=== PATIENT | female | born 1980 | race African-American/Black ===

== ENCOUNTER 2017-03-18 09:03 | Emergency (ER) | payer MEDICAID ==
[~2017-03-18] VITALS: Ht 175.3 cm; Wt 79.4 kg
[2017-03-18 09:35] VITALS: BP 156/102
[2017-03-18 09:53] LABS: Basophils # (auto) 0 uL; Basophils % (auto) 0.2 % (0.0-2.0); Eosinophils # (auto) 0.3 uL; Eosinophils % (auto) 3.4 % (0.0-7.0); Hemoglobin 15.1 g/dL (12.2-16.2); Lymphocytes # (auto) 1.9 uL; Lymphocytes % (auto) 23.9 % (10.0-50.0); Mean Corpuscular Hemoglobin 31.8 pg (28.0-32.0); Mean Corpuscular Hgb Conc. 33.6 g/dL (32.0-36.0); Mean Corpuscular Volume 94.4 fL (80.0-100.0); Mean Platelet Volume 10.4 fL (6.9-10.8); Monocytes % (auto) 12.2 % (0.0-12.0); Neutrophils # (auto) 4.7 uL; Neutrophils % (auto) 60.3 % (37.0-80.0); Nucleated Red Blood Cells % 0.1 %; Platelet Count (auto) 229 10^3/uL (140-450); Red Cell Distribution Width 14.9 % (11.8-14.3); White Blood Cell 7.8 10^3/uL (4.4-10.8)
[2017-03-18 10:20] LABS: Albumin 4.2 g/dL (3.4-5.0); BUN/Creatinine Ratio 14.3; Bilirubin, Total 0.8 mg/dL (0.2-1.0); Calcium 9.3 mg/dL (8.5-10.1); Potassium 3.4 mmol/L (3.5-5.1); Total Protein 8.2 g/dL (6.4-8.2)
== END 2017-03-18 11:35 | disposition home or self-care (01) ==
LOC: ER 09:03
DX: R07.89 Other chest pain (principal); E03.9 Hypothyroidism, unspecified; F41.9 Anxiety disorder, unspecified; Z88.2 Allergy status to sulfonamides
CPT/HCPCS: 36415; 80053; 84443; 85025; 93005

== ENCOUNTER 2018-03-05 13:43 | Emergency (ER) | payer MEDICAID ==
[~2018-03-05] VITALS: Ht 175.3 cm; Wt 72.6 kg
[2018-03-05 13:51] VITALS: BP 138/86
[2018-03-05 14:22] LABS: Basophils # (auto) 0.1 uL; Basophils % (auto) 0.5 % (0.0-2.0); Eosinophils # (auto) 0.1 uL; Eosinophils % (auto) 1.3 % (0.0-7.0); Hematocrit 40.3 % (36.0-46.0); Hemoglobin 13.5 g/dL (12.2-16.2); Lymphocytes # (auto) 1.4 uL; Lymphocytes % (auto) 12.5 % (10.0-50.0); Mean Corpuscular Hemoglobin 32.3 pg (28.0-32.0); Mean Corpuscular Hgb Conc. 33.7 g/dL (32.0-36.0); Monocytes # (auto) 1.2 uL; Monocytes % (auto) 11.3 % (0.0-12.0); Neutrophils # (auto) 8.2 uL; Neutrophils % (auto) 74.4 % (37.0-80.0); Platelet Count (auto) 230 10^3/uL (140-450); Red Blood Cells 4.19 10^6/uL (4.0-5.20)
[2018-03-05 15:03] LABS: Urine Bacteria FEW /hpf (None Seen); Urine Blood TRACE /uL (Negative); Urine Mucus FEW (None Seen); Urine Specific Gravity 1.032 (1.001-1.035); Urine WBC 2 /hpf (0 - 5)
[2018-03-05 15:05] LABS: Albumin 3.6 g/dL (3.4-5.0); Potassium 3.7 mmol/L (3.5-5.1)
[2018-03-05 15:09] LABS: BUN/Creatinine Ratio 12.7; Bilirubin, Total 0.4 mg/dL (0.2-1.0); Calcium 9.6 mg/dL (8.5-10.1); Total Protein 8.3 g/dL (6.4-8.2)
[2018-03-05] MEDS ORDERED: KETOROLAC TROMETH 60MG/2ML VIAL IM ONE (16:00)
== END 2018-03-05 16:24 | disposition home or self-care (01) ==
LOC: ER 13:43
DX: N83.201 Unspecified ovarian cyst, right side (principal); N39.0 Urinary tract infection, site not specified; Z90.49 Acquired absence of other specified parts of digestive tract; Z88.2 Allergy status to sulfonamides
CPT/HCPCS: 36415; 74176; 80053; 81001; 81025; 82150; 83690; 85025; 96372; 99284; J1885

== ENCOUNTER 2021-09-10 14:16 | Emergency (ER) | payer MEDICAID ==
[~2021-09-10] VITALS: Ht 175.3 cm; Wt 54.4 kg
[2021-09-10 16:00] VITALS: BP 131/98
[2021-09-10] MEDS ORDERED: cefTRIAXone SOD 1,000 MG VL IM ONE (16:00)
[2021-09-10] MEDS ORDERED: ACETAMINOPHEN 325 MG TAB PO ONE (16:00)
[2021-09-10] MEDS ORDERED: LIDO2SOL23 MT (16:04)
[2021-09-10] MEDS ORDERED: ACE650RS PR (16:04)
[2021-09-10] MEDS ORDERED: AZIT250T8 PO (16:04)
[2021-09-10] MEDS ORDERED: ACETAMINOPHEN 650 mg PER 20.3 mL UD ONE (16:07)
[2021-09-10] MEDS ORDERED: ACETAMINOPHEN 650 mg PER 20.3 mL UD PO ONE (16:15)
== END 2021-09-10 16:20 | disposition home or self-care (01) ==
LOC: ER 14:16
DX: U07.1 COVID-19 (principal); J02.9 Acute pharyngitis, unspecified; Z90.49 Acquired absence of other specified parts of digestive tract; Z79.2 Long term (current) use of antibiotics; Z79.899 Other long term (current) drug therapy; Z88.2 Allergy status to sulfonamides
CPT/HCPCS: 96372; 99283; J0696